=== PATIENT | female | born 1965 | race Caucasian/White ===

== ENCOUNTER 2022-01-31 17:14 | Emergency (ER) | payer SELFPAY ==
[2022-01-31] VITALS (14 sets, daily range): BP systolic 66–166; BP diastolic 35–109; PULSE 89–150; RESP 14–18; TEMP 36.6; O2SAT 94–96; BMI 34.4
--- NOTE | 2022-01-31 17:39 | PC.NURSE ---
ROLANDA Garrett has spoke with dispatch multiple times trying to confirm name and along with next of kin or a swimming pool serviceperson for this patient. Name and confirmed with dispatch. Called 2 numbers that were given by dispatch. No answer. Requested and officer go to the house to see if they can find any information for the patient. Dispatch will continue to call numbers listed related to this patient. Advised them if t hey contacted anyone to have them call [facility] and ask to speak with ROLANDA Garrett.
--- NOTE | 2022-01-31 17:43 | XR_ITS ---
PROCEDURE INFORMATION: Exam: XR Abdomen Exam date and time: 01/31/2022 5:50 PM Age: 56 years old Clinical indication: Abdominal pain; Additional info: Abd distention TECHNIQUE: Imaging protocol: Radiologic exam of the abdomen. Views: Frontal supine view of the abdomen. 1 View. COMPARISON: CR XR CHEST PORTABLE 01/31/2022 5:48 PM FINDINGS: Gastrointestinal tract: Marked gaseous distention of the stomach present. Gaseous distended loops of small bowel are present. Findings may be consistent with ileus, however developing obstruction can not be excluded. Intraperitoneal space: Lower abdomen was not included on the study. Bones/joints: The lumbar spine demonstrates mild degenerative changes at multiple levels. IMPRESSION: 1. Marked gaseous distention of the stomach present. 2. Gaseous distended loops of small bowel are present. Findings may be consistent with ileus, however developing obstruction can not be excluded. 3. The lumbar spine demonstrates mild degenerative changes at multiple levels.
--- NOTE | 2022-01-31 17:43 | XR_ITS ---
PROCEDURE INFORMATION: Exam: XR Chest Exam date and time: 01/31/2022 5:48 PM Age: 56 years old Clinical indication: Device placement; Ett placement (vent status); Additional info: Code TECHNIQUE: Imaging protocol: Radiologic exam of the chest. Views: 1 view. COMPARISON: No relevant prior studies available. FINDINGS: Tubes, catheters and devices: Tip of the endotracheal tube overlies the right mainstem bronchus and should be retracted. Lungs: No focal pneumonia or pneumothorax. Pleural spaces: There are no pleural effusions present. Heart/Mediastinum: Unremarkable. No cardiomegaly. Bones/joints: Unremarkable. IMPRESSION: 1. Tip of the endotracheal tube overlies the right mainstem bronchus and should be retracted. 2. No focal pneumonia or pneumothorax.
--- NOTE | 2022-01-31 18:03 | CT_ITS ---
PROCEDURE INFORMATION: Exam: CT Abdomen And Pelvis With Contrast Exam date and time: 01/31/2022 7:20 PM Age: 56 years old Clinical indication: Injury or trauma; Other: Code; Additional info: Post-op pain, cardiac arrest TECHNIQUE: Imaging protocol: Computed tomography of the abdomen and pelvis with contrast. 3D rendering (Not supervised by radiologist): MIP and/or 3D reconstructed images were created by the technologist. Radiation optimization: All CT scans at this facility use at least one of these dose optimization techniques: automated exposure control; mA and/or kV adjustment per patient size (includes targeted exams where dose is matched to clinical indication); or iterative reconstruction. Contrast material: ISOVUE; Contrast volume: 70 ml; Contrast route: IV; COMPARISON: CR XR KUB 01/31/2022 5:50 PM FINDINGS: Tubes, catheters and devices: Hartmann catheter. Liver: Normal. No mass. Gallbladder and bile ducts: Normal. No calcified stones. No ductal dilation. Pancreas: Normal. No ductal dilation. Spleen: Normal. No splenomegaly. Adrenal glands: Normal. No mass. Kidneys and ureters: Normal. No hydronephrosis. Stomach and bowel: Air-fluid levels in the colon reflecting diarrhea and possibly low-grade colitis. No small bowel obstruction. Appendix: No evidence of appendicitis. Intraperitoneal space: Unremarkable. No free air. No significant fluid collection. Vasculature: Unremarkable. No abdominal aortic aneurysm. Lymph nodes: Unremarkable. No enlarged lymph nodes. Urinary bladder: Unremarkable as visualized. Reproductive: Hysterectomy. Bones/joints: Unremarkable. No acute fracture. Soft tissues: Unremarkable. IMPRESSION: 1. Air-fluid levels in the colon which is distended. This could reflect low-grade colitis. 2. No additional acute findings in the abdomen pelvis.
--- NOTE | 2022-01-31 18:03 | CT_ITS ---
PROCEDURE INFORMATION: Exam: CTA Chest With Contrast Exam date and time: 01/31/2022 7:20 PM Age: 56 years old Clinical indication: Other: Cardiac arrest; Additional info: Post cardiac arrest, respiratory failure TECHNIQUE: Imaging protocol: Computed tomographic angiography of the chest with contrast. 3D rendering (Not supervised by radiologist): MIP and/or 3D reconstructed images were created by the technologist. Radiation optimization: All CT scans at this facility use at least one of these dose optimization techniques: automated exposure control; mA and/or kV adjustment per patient size (includes targeted exams where dose is matched to clinical indication); or iterative reconstruction. Contrast material: ISOVUE 370; Contrast volume: 70 ml; Contrast route: INTRAVENOUS (IV); COMPARISON: CR XR CHEST PORTABLE 01/31/2022 5:48 PM FINDINGS: Pulmonary arteries: Normal. No pulmonary emboli. Aorta: Unremarkable. No aortic aneurysm. No aortic dissection. Lungs: In the right lung base there is mild atelectasis. No pneumonia. Pleural spaces: Unremarkable. No pneumothorax. No pleural effusion. Heart: Unremarkable. No cardiomegaly. No pericardial effusion. Lymph nodes: Unremarkable. No enlarged lymph nodes. Bones/joints: Acute fractures of the right anterior 2nd, 3rd, 4th, 5th, 6th, 7th ribs. The 3rd, 4th, 5th, 6th rib fractures are displaced. Soft tissues: Unremarkable. IMPRESSION: Acute right anterior rib fractures. No pneumothorax or other acute findings in the chest.
--- NOTE | 2022-01-31 18:03 | CT_ITS ---
PROCEDURE INFORMATION: Exam: CT Head Without Contrast Exam date and time: 01/31/2022 7:15 PM Age: 56 years old Clinical indication: Injury or trauma; Fall and other: Code; Blunt trauma (contusions or hematomas); Additional info: Head injury TECHNIQUE: Imaging protocol: Computed tomography of the head without contrast. Radiation optimization: All CT scans at this facility use at least one of these dose optimization techniques: automated exposure control; mA and/or kV adjustment per patient size (includes targeted exams where dose is matched to clinical indication); or iterative reconstruction. COMPARISON: No relevant prior studies available. FINDINGS: Brain: Diffuse cerebral edematous changes are noted bilaterally consistent with global anoxic/ischemic injury. No evidence of midline shift. No definite hemorrhage. Cerebral ventricles: No ventriculomegaly. Paranasal sinuses: Visualized sinuses are unremarkable. No fluid levels. Mastoid air cells: Visualized mastoid air cells are well aerated. Bones/joints: No acute fracture. Soft tissues: No acute changes IMPRESSION: 1. Diffuse cerebral edematous changes are noted bilaterally consistent with global anoxic/ischemic injury. 2. No evidence of midline shift. 3. No definite cerebral hemorrhage. Findings were reviewed with a neuroradiologist.
--- NOTE | 2022-01-31 18:09 | HMH.EDGENADL ---
Discharge Plan Disposition Patient Disposition: Xfer Other Condition: Critical Referrals Follow up/Referrals: Provider,Referral, [Primary Care Provider] - See instructions Clinical Impressions Clinical Impression: Cardiac arrest, Cardiac arrest with ventricular fibrillation, Asystole, Metabolic acidosis, Elevated lactic acid level, Acute respiratory failure, Anoxic brain injury, Multiple fractures of ribs, DEJUAN (acute kidney injury), Atrial fibrillation Discharge ED Provider: Marquise Puri Adult HPI General Stated complaint: Code 500 Time Seen by Provider: 01/31/22 18:09 Limitations: Altered Mental Status History of Present Illness HPI narrative: History limited due to patient unresponsive status, 56-year-old female brought in by EMS in cardiac arrest. She called EMS herself was initially speaking and then became unresponsive on the phone, upon EMS arrival she was found unresponsive pulseless with asystolic rhythm. She had copious emesis, intubation was failed prehospital and LMA was placed. IV was established, epinephrine was given 2 times in the field with no return of spontaneous circulation. Upon arrival patient was asystolic with marked purple discoloration above the neck. LMA was removed and patient intubated with 7.5 ET tube with significant difficulty due to again copious emesis obscuring the airway despite aggressive suctioning. She was noted to have markedly distended abdomen which EMS reported was noted even before they arrived. Multiple rounds of ACLS ensued with several epinephrines given. At 1 point she had a rhythm of ventricular fibrillation for which she was defibrillated at 200 J. Subsequent pulse check was PEA then degenerating into asystole again. As we approached approximately 45 minutes total downtime, on pulse check she was noted to have a palpable pulse with sinus tachycardia on the monitor and good cardiac activity on bedside ultrasound. Rate decreased as did blood pressure and she was placed on epinephrine drip, right femoral central line was placed as well as nasogastric tube and Hartmann catheter. Related Data Allergies Allergy/AdvReac Type Severity Reaction Status Date / Time Sulfa (Sulfonamide Allergy Verified 01/31/22 19:23 Antibiotics) [facility] Social History Smoking Status: Unknown if ever smoked alcohol intake: never current occupational status: other Travel in the last 8 weeks: None ROS Obtained: Yes unobtainable due to mental status Physical Exam General General appearance: other Comment: Unresponsive, intubated Head Head exam: atraumatic, normocephalic and other (Purple discoloration) Eye Eye exam: Present other (Pupils fixed, 3 mm bilaterally) ENT ENT exam: Present other (Copious emesis feels the airway) Neck Neck exam: Present normal inspection Chest Chest inspection: Present normal inspection and symmetric chest wall rise (With bag valve mask ventilation) Respiratory Respiratory exam: Present other (BVM assisted respirations, diminished lung sounds, rhonchorous lung sounds bilaterally) Cardiovascular Cardiovascular exam: Present other (Initially asystole, now sinus tachycardia) Abdominal Exam Abdominal exam: Present distention (Markedly so) External exam: Present normal external exam Extremities Exam Extremities exam: Present normal inspection Back Exam Back exam: Present normal inspection Neurological Exam Neurological exam: Present other (GCS 3 T no spontaneous movement, no corneal reflex or gag reflex) Skin Skin exam: Present cyanosis and pallor Medical Decision Making Medical Records Medical records reviewed: Yes I reviewed the patient's medical records. Garrett Inquiry Pt receiving controlled substance: No Vital Signs: 01/31/22 17:51 01/31/22 18:08 01/31/22 18:10 Pulse Rate 150 H Respiratory Rate Blood Pressure 109/88 L 134/109 H 98/83 L Blood Pressure Position Supine
--- NOTE | 2022-01-31 18:20 | PC.NURSE ---
velasquez catheter inserted, no urine specimen collected at insertion r/t only scan amount of clear urine noted in velasquez tube.
--- NOTE | 2022-01-31 18:23 | PC.NURSE ---
Registration called back and advised me that her called and was on his way to [facility]. Asked for number, I called and confirmed pt's name and with Estrada Stock who advised he was her and he was on his way to [facility]. He advised he was just minutes away and had come home from work and found the house in the state it was in.
--- NOTE | 2022-01-31 18:30 | PC.NURSE ---
Dr. Puri and myself spoke with in the conference and updated him on 's condition. advised pt had hx of asthma, GA, mild stroke, and a-fib. He advised she took multiple medications but could not remember them off the top of his head. Advised she was allergic to sulfa. Asked if he wanted to see pt at this time and he did. taken to room 3 to see .
--- NOTE | 2022-01-31 18:32 | ECG_ITS ---
APPROVED REPORT Exam: Resting ECG HR:148 bpm ECG Measurements Heart Rate 148 AXES QRSd 89 QRS -42 QT 308 T 73 QTc 393 Conclusion ATRIAL FIBRILLATION WITH RAPID VENTRICULAR RESPONSE LEFT AXIS DEVIATION [QRS AXIS < -30] PATTERN CONSISTENT WITH PULMONARY DISEASE POSSIBLE RIGHT VENTRICULAR CONDUCTION DELAY [RSR (QR) IN V1/V2] ST DEPRESSION, CONSIDER SUBENDOCARDIAL INJURY [0.1+ mV ST DEPRESSION] ABNORMAL ECG UNCONFIRMED REPORT Electronically signed by : Po Blair MD 02/01/2022 13:50:52
[2022-01-31 18:34] LABS: Basophils # 0.2 K/mm3 (0-0.2); Basophils % 1.6 % (0.1-2.0); Eosinophils % 0.4 % (0.1-12.0); Hematocrit 46.5 % (37.0-47.0); Hemoglobin 14.5 g/dL (12.2-16.2); Lymphocytes # 5.7 K/mm3 (0.7-4.5); Lymphocytes % 51.7 % (10-50); Mean Corpuscular HGB Conc 31.1 g/dL (31.8-35.4); Mean Corpuscular Hemoglobin 36.2 pg (27.0-31.2); Mean Corpuscular Volume 116.3 fl (81-99); Mean Platelet Volume 9.3 fl (7.4-10.4); Monocytes # 0.3 K/mm3 (0.1-1.0); Neutrophils # 4.8 K/mm3 (1.8-7.8); Neutrophils % 43.3 % (37.0-80.0); Platelet Count 264 K/mm3 (142-424); Red Cell Distribution Width 13.3 % (11.5-17.5); White Blood Count 11.1 K/mm3 (4.8-10.8)
[2022-01-31 18:35] LABS: MANUAL DIFFERENTIAL MANUAL DIFFERENTIAL (MANUAL DIFF)
[2022-01-31 18:41] LABS: Alanine Aminotransferase 159 U/L (12-78); Albumin Level 3.7 g/dl (3.5-5.0); Albumin/Globulin Ratio 1.7 (1.1-1.8); Alkaline Phosphatase 87 U/L (38-126); Anion Gap 31.8 mEq/L (5-15); Blood Urea Nitrogen 15 mg/dl (7-17); Calcium 8.9 mg/dl (8.4-10.2); Carbon Dioxide 18 mmol/L (22.0-30.0); Chloride 97 mmol/L (98-107); Estimated Glomerular Filt Rate 46 ml/min (>60); GFR (African American) 56 ML/MIN (>60); Globulin 2.2 g/dL (1.3-3.2); Glucose 243 mg/dl (74-100); Potassium 4.8 mmoL/L (3.5-5.1); Sodium 142 mmol/L (136-145); Total Protein,Serum 5.9 g/dl (6.3-8.2)
[2022-01-31 18:44] LABS: Acetaminophen < 10 ug/ml (10-30); Ammonia 194 umol/L (9-30); Bilirubin,Total 0.1 mg/dl (0.2-1.3); Creatinine Clearance Estimated 81 mL/min (50-200); Ethyl Alcohol < 10 mg/dl (0-10); Salicylate < 1.0 mg/dL (2.0-20.0)
[2022-01-31 18:47] LABS: Aspartate Amino Transferase 183 U/L (14-36)
[2022-01-31 18:48] LABS: D-Dimer > 8.10 ug/mL (0.0-0.5)
[2022-01-31 18:52] LABS: NT Pro Brain Natriuretic Pep. 162 pg/mL (0-125)
[2022-01-31 18:56] LABS: ABG Base Excess -10.4 mmol/L (-2.4-2.3); ABG HCO3 18.1 mmhg (22.0-26.0); ABG Oxygen Saturation 98 % (90-100); ABG PO2 120.4 mmhg (80-100); ABG TCO2 19.6 mmhg (23-27)
[2022-01-31 18:56] LABS: Lymphocytes % 65 % (10-50); Macrocytosis 2+; Monocytes % 3 % (2-9); Neutrophils % 32 % (42-76); Procalcitonin 0.069 ng/mL (0.0-2.0); Total Cells Counted 100
[2022-01-31 18:57] LABS: Platelet Estimate Normal; Stomatocytes 1+; Troponin I < 0.01 ng/ml (0.00-0.034)
[2022-01-31 18:57] LABS: Oxygen 45 %; PEEP 5; Tidal Volume 500; Vent Rate 14
--- NOTE | 2022-01-31 18:57 | PC.NURSE ---
levophed drip decreased to 8mcg at this time r/t bp 164/105 HR 108
[2022-01-31 18:58] LABS: Allen's Test Non Applicable; Source Left Radial
--- NOTE | 2022-01-31 18:58 | PC.NURSE ---
michela jean notified ER of blood gas results
[2022-01-31 19:01] LABS: ABG PCO2 50.6 mmhg (35.0-45.0); ABG PH 7.17 mmol/L (7.35-7.45)
[2022-01-31 19:05] LABS: HCG Qualitative, Serum Negative (Negative)
--- NOTE | 2022-01-31 19:05 | PC.NURSE ---
late entry code blue information: 171-Pt arrived via ems, cpr in progress, pt has and LMA airway in place, #20 IV in L AC, last epi given at 1710. Per EMS pt called 911 said she couldn't breath, dispatch said the line went to an open line after than. 1716- pulse check, asystole, EPI given, compression resumed 1718- pt intubated per ER MD 7.5 ETT 1719- epi given 1720- pulse check, PEA, compressions resumed 1722-epi given 1723-pulse check, asystole 1726- epi given, compressions in progress #20 g IV R hand started (IV In L AC infiltrated) 1728- cardiac ultrasound per ER MD at this time 1729- pulse check, VFIB, resume compressions, charging monitor 1729-Shock, resumed compressions right after shock 1731- Bicarb given 1 amp 1732- pulse check, asystole 1733- Bicarb given 1 amp ( this is amp #2) 1735- pulse check, organized rhythm on monitor,tachycardia HR 150s 1740- rad at BS for chest xray, ETT tube pulled back 3 cm (now at 25 cm at the lip). Reshot chest xray 1741- Epi drip started at 6mcg (18mL/hr) 1745- good cardiac activity on ultrasound per ER MD HR 105 1752- NG tube placed in L nare 60 cm depthh 1755- Central line placed per ER MD in R femoral 1826- Levophed drip started at 8mcg (15mL/hr) sbp 62 (verbal order per ER MD)
--- NOTE | 2022-01-31 19:16 | PC.NURSE ---
1834- increased levophed 10 mcg at this time sbp 77
--- NOTE | 2022-01-31 19:16 | PC.NURSE ---
1837- pt at BS
--- NOTE | 2022-01-31 19:18 | PC.NURSE ---
pt to CT at this time with RT, mirandarn and suzette rn and rad staff
--- NOTE | 2022-01-31 19:24 | PC.NURSE ---
report to michela de anda and michela harmon at this time
--- NOTE | 2022-01-31 19:34 | PC.NURSE ---
pt return from ct at this time. RT and RN at bedside transitioning patient
--- NOTE | 2022-01-31 20:21 | PC.NURSE ---
placed on waitlist at
--- NOTE | 2022-01-31 20:21 | PC.NURSE ---
placed on waitlist at [facility]
--- NOTE | 2022-01-31 20:25 | PC.NURSE ---
on phone with dr carcamo at [facility]
--- NOTE | 2022-01-31 20:30 | PC.NURSE ---
md on phone with dr saskia bird at
--- NOTE | 2022-01-31 20:30 | PC.NURSE ---
spoke with shira at [facility]. states they have icu beds and will have to speak with their instensivist and will give us a call back
--- NOTE | 2022-01-31 20:35 | PC.NURSE ---
accepted by dr bird at . they will call us back with arrangements
[2022-01-31 20:37] LABS: Coronavirus 19, PCR Not Detected (NotDetected); Influenza A, PCR Not Detected (NotDetected); Influenza B, PCR Not Detected (NotDetected)
--- NOTE | 2022-01-31 21:20 | PC.NURSE ---
Report was called to John at [facility]. Patient updated on patient transfer and visiting policy for [facility].
== END 2022-01-31 21:57 | disposition short-term general hospital (02) ==
PROVIDERS: Emergency Provider Emergency Medicine
DX: I46.9 Cardiac arrest, cause unspecified (principal); R57.0 Cardiogenic shock; I48.91 Unspecified atrial fibrillation; E87.4 Mixed disorder of acid-base balance; J96.00 Acute respiratory failure, unspecified whether with hypoxia or hypercapnia; G93.1 Anoxic brain damage, not elsewhere classified; M96.89 Other intraoperative and postprocedural complications and disorders of the musculoskeletal system; Y84.8 Other medical procedures as the cause of abnormal reaction of the patient, or of later complication, without mention of misadventure at the time of the procedure; Y92.532 Urgent care center as the place of occurrence of the external cause; N17.9 Acute kidney failure, unspecified; Z88.2 Allergy status to sulfonamides; Z86.73 Personal history of transient ischemic attack (TIA), and cerebral infarction without residual deficits
CPT/HCPCS: 31500; 94002; 36558; 94644; 94645; 51702; 70450; 71045; 71275; 74018; 74177; 80053; 80329; 82140; 82803; 83880; 84145; 84484; 84703; 85007; 85025; 85378; 87040; 87070; 87077; 87186; 87205; 92950; 93005; 96365; 96366; 96367; 96375; 99291; C1751; C9803; Q9967; U0003; U0005